=== PATIENT | female | born 1980 | race Caucasian/White ===

== ENCOUNTER 2017-03-15 17:45 | Outpatient (CLI) | payer OTHER ==
[2017-03-15 17:59] VITALS: BP 93/51; PULSE 78; RESP 18
--- NOTE | 2017-03-15 19:35 | RADRPT ---
PROCEDURE: US biophysical profile. CLINICAL INDICATION: Pain. well-being. TECHNIQUE: Multiple sonographic images of the uterus were obtained. The images were revi ewed on a PACS workstation. COMPARISON: No prior studies are available for comparison. FINDINGS: There is a single live intrauterine gestation. heart rate is 152 beats per minute. The position is cephalic. The placenta is anterior, grade II. The CLARE is 8.3 cm (normal: 5 - 25 cm). Breathing Movement: 2 Gross Body Movement: 2 Tone: 2 Qualitative Amniotic Fluid Volume: 2 TOTAL: 8 IMPRESSION: 1. Single viable intrauterine gestation. 2. Biophysical profile = 8/8. 3. CLARE = 8.3 cm. RPTAT: HFN .Keila Blank MD, MD Date Time Electronically viewed and signed by .Keila Blank MD, MD on 03/15/2017 19:35 .N/
--- NOTE | 2017-03-15 19:40 | RADRPT ---
PROCEDURE: US OB. CLINICAL INDICATION: Pain. TECHNIQUE: Multiple sonographic images of the pelvis were obtained. Transabdominal imaging only w as performed. The images were reviewed on a PACS workstation. COMPARISON: None available. FINDINGS: There is a single viable intrauterine gestation. Cardiac activity is present with 150 beats per min [place]. There is a vertex presentation. Measurements were made in order to determine age. The results are as follows: BPD = 8.24 cm HC = 29.93 cm AC = 29.02 cm FL = 6.41 cm Estimated gestational age of approximately 33 weeks and 1 day. The estimated date of delivery is 05/02/2017. The EFW = 2111 g, 38.5%. The placenta is anterior, grade II. There is no evidence for an abruption or placenta previa. There is a normal amount of amniotic fluid with an CLARE = 8.3 cm. IMPRESSION: 1. Single viable intrauterine gestation of approximately 33 weeks and 1 day. 2. The estimated date of delivery is 05/02/2017. RPTAT: HFN .Keila Blank MD, MD Date Time Electronically viewed and signed by .Keila Blank MD, MD on 03/15/2017 19:39 .N/
--- NOTE | 2017-03-16 01:46 | PN ---
Triage Information Date/Time March 16, 2017 Weeks of Gestation 33w 2d : 4 Para: 0 Diabetes: none Hypertention: none Additional information Pt came in complaining of vomiting and abdominal pain. Pt is homeless. She had at least one care visit to [facility].She went to [facility] at 0880 on 03/15 for pain in her throat. She says she was given a dose of IV antibiotics for a "lesion in her throat" and was given a prescription that she says is in her shopping cart that was left at an intersection when she was brought here.The patient's story changes a fair amount each time the story is told. PMHx: none. PSHx: none. NKDA. Social: methamphetamine use. Objective Vital Signs Date Time Temp Pulse Resp B/P Pulse Ox O2 Delivery O2 Flow Rate FiO2 03/15/17 17:59 98.1 78 18 93/51 96 Room Air Heart Rate: 140's Contractions: None Results/Medications Imaging Results US: EFW 2111 grams. BPP 8/8. CLARE 8.3 Assessment/Plan IUP at 33w 2d. Nausea and vomiting. P: D/C home after feeding the patient as pt has had no nausea or vomiting while here. Offered the pt a shower which she declined. LUCÍA VARGAS MD Mar 16, 2017 01:43
== END 2017-03-16 02:30 | disposition home or self-care (01) ==
LOC: OBT 17:45 → L-D 17:45 → OBT 03-16 02:30
PROVIDERS: ATTEND Obstetrics & Gynecology
DX: O21.2 Late vomiting of pregnancy (principal); Z3A.33 33 weeks gestation of pregnancy
CPT/HCPCS: 76815; 76818; Z7500; G0463

== ENCOUNTER 2017-03-22 15:17 | Inpatient (IN) | payer OTHER ==
[2017-03-22] MEDS ORDERED: LACTATED RINGER'S 1,000 ML IV SCH (15:40)
[2017-03-22] MEDS ORDERED: POTASSIUM CHLORIDE 250 ML IVPB ONE (16:00)
[2017-03-22] MEDS ORDERED: THIAMINE 500 MG in SOD CHLORIDE 0.9% 100 ML IV SCH (17:00)
[2017-03-22 17:11] LABS: BASOPHILS % 0.1 % (0.0-2.0); EOSINOPHILS # 0.1 10^3/ul (0.0-0.5); EOSINOPHILS % 0.7 % (0.0-7.0); HEMATOCRIT 27.7 % (37.0-47.0); HEMOGLOBIN 9.8 g/dl (12.0-16.0); LYMPHOCYTES # 2.4 10^3/ul (0.8-2.9); LYMPHOCYTES % 27.5 % (15.0-51.0); MEAN CORPUSCULAR HEMOGLOBIN 33.4 pg (29.0-33.0); MEAN CORPUSCULAR HGB CONC 35.4 g/dl (32.0-37.0); MEAN CORPUSCULAR VOLUME 94.5 fl (82.0-101.0); MEAN PLATELET VOLUME 8.6 fl (7.4-10.4); MONOCYTE # 0.5 10^3/ul (0.3-0.9); MONOCYTES % 5.9 % (0.0-11.0); NEUTROPHIL # 5.7 10^3/ul (1.6-7.5); NEUTROPHILS % 65.5 % (39.0-77.0); PLATELET COUNT 256 10^3/UL (140-415); RED BLOOD COUNT 2.93 10^6/ul (4.20-5.40); RED CELL DISTRIBUTION WIDTH 12.4 % (11.5-14.5); WHITE BLOOD COUNT 8.7 10^3/ul (4.8-10.8)
[2017-03-22 17:26] LABS: INR 0.87; PROTIME 11.8 Sec (12.2-14.2); PT RATIO 0.9
[2017-03-22 17:27] LABS: PARTIAL THROMBOPLASTIN TIME 30.6 Sec (25.0-35.0)
[2017-03-22 17:30] LABS: ALBUMIN 2.9 g/dl (3.3-4.9); ALBUMIN/GLOBULIN RATIO 1.03; BILIRUBIN,INDIRECT 0.3 mg/dl (0-1.1); BILIRUBIN,TOTAL 0.3 mg/dl (0.2-1.3); CALCIUM 8.3 mg/dl (8.4-10.2); CREATININE 0.58 mg/dl (0.44-1.00); POTASSIUM 3.7 mmol/L (3.5-5.1); TOTAL PROTEIN 5.7 g/dl (6.1-8.1)
[2017-03-22 17:36] VITALS: BP 137/69; PULSE 81; RESP 18
--- NOTE | 2017-03-22 20:18 | HP ---
Date/Time of Note Date/Time of Note DATE: 03/22/17 TIME: 20:18 OB - History Hx of Present Free Text/Dictation 36 y.o. with an IUP at 36 weeks by her records and brought in by transfer from [facility] as was found wandering in and out of traffic with an altered mental status. Pt's drug screen was positive for methamphetamines, benzodiazepines and marijuana. Pt has a history of alcohol abuse as well and has a court order to attend AA for an unknown reason, found in her purse while looking for her ID. She was given a dose of Versed by the Fire Dept just in order to be able to transport her to the hospital. The pt had a brain MRI which was normal to r/o a bleed or other trauma. She was transferred here as they do not have an OB service at that hospital. Pt was here a week ago and actually seen by me at which time she stated that she was homeless and had left her belongings in a shopping cart at a particular intersection. At that time she had been transferred from [facility] after being found laying in front of a [employer] store. BPP was 8/8 CLARE 8.3 and EFW 2111 grams. She was not maryana and all else was fine so received no therapy and was d/c'ed. Pt has been sleeping since admit and non-arousable. Pt has a visit card for [facility] in her purse with notations for multiple visits. PMHx: drug and ETOH abuse. PSHx: none. NKDA. Social: homeless. Chief Complaint: Altered mental status. H/O drug and alcohol abuse. contractions. Estimated Due Date: Apr 19, 2017 : 4 Para: 0 Spontaneous : 3 Care: Limited Care Ultrasounds: Normal mid trimester US Abnormal Ultrasound Findings: Size less than dates by 2 weeks on 03/15. Medical Complications: None Past Family/Social History * Past Medical, Surgical, Family and Obstetric Histories reviewed prior visit. Full records are not available. Blood Type: Unknown Rubella: unknown RPR/VDRL: Unknown GBS Status: Unknown HBsAG: Unknown OB Admission Exam Vital Signs Vital Signs Vital Signs Date Time Temp Pulse Resp B/P Pulse Ox O2 Delivery O2 Flow Rate FiO2 03/22/17 17:36 81 18 137/69 Room Air Physical Exam HEENT: WNL Heart: Rhythm Normal Lungs: Clear Abdomen: WNL Extremities: Normal Reflexes: Normal Heart Rate: 120's Accelerations: Accelerations Present Decelerations: No Decelerations Varibility: Moderate Contractions on Admission: 6-10 Minutes Apart Intensity: Mild Last 72 hours Lab Results CBC & BMP 03/22/17 17:00 03/22/17 17:01 Liver Function Test 03/22/17 17:01 Alanine Aminotransferase (ALT/SGPT) 59 Albumin 2.9 L Alkaline Phosphatase 151 H Aspartate Amino Transf (AST/SGOT) 51 H Direct Bilirubin 0.00 Total Protein 5.7 L OB Assessment/Plan Other Assessment: A: IUP at 36 weeks. contractions. Altered mental status. Drug and ETOH abuse. Other plan: Monitoring of baby. IV hydration with Thiamine therapy and multivitamin therapy. Rodriguez to gravity. Perinatology consult in AM. 4-point restraints for now until pt alert and oriented. Regular diet when alert and oriented. LUCÍA VARGAS MD Mar 22, 2017 20:18
[2017-03-22] MEDS ORDERED: THIAMINE 200 MG INJ IV SCH (21:00)
[2017-03-22] MEDS: MULTIVITAMINS 10 ML, FOLIC ACID 1 MG in SOD CHLORIDE 0.9% 1,000 ML IVPB SCH (22:13)
[2017-03-23] MEDS ORDERED: HALOPERIDOL 5 MG INJ IV ONE (01:30)
[2017-03-23] MEDS ORDERED: THIAMINE 500 MG in SOD CHLORIDE 0.9% 100 ML IV SCH (04:00)
[2017-03-23] MEDS: MULTIVITAMINS 10 ML, FOLIC ACID 1 MG in SOD CHLORIDE 0.9% 1,000 ML IVPB SCH (09:00)
[2017-03-23] MEDS ORDERED: THIAMINE 100 MG TAB PO SCH ×3 (11:00→12:15)
[2017-03-23] MEDS ORDERED: QUETIAPINE 100 MG TAB PO SCH (12:00)
[2017-03-23] MEDS: QUETIAPINE 100 MG TAB PO SCH ×2 (13:00→17:15)
--- NOTE | 2017-03-23 14:37 | PSY ---
Date/Time of Note Date/Time of Note DATE: 03/23/17 TIME: 14:33 Psychiatric Subjective Eval Consent Pt consented to telemedicine: Yes Subjective Evaluation Patient location: inpatient Chief Complaint: "I am undercover fbi agent" History of present illness 34 yo female with hx amphetamine use and bipoalr, off meds; combative and confused, required restraints. Pt demands to leave, threatening: 'I will take your license away, I am an fbi agent" grandiose, paranoid, disorgaznied, no table to plan for food, detention, clothing. No Si or HI. Past psychiatric history multiple inpt Hospitalization: yes Family History denies Medical history 32 weeks Allergies: Coded Allergies: No Known Allergy (Unverified , 03/15/17) Unknown: Unable to obtain (Unverified , 03/22/17) Substance Abuse Substance abuse history: Yes Prior substance abuse treatmen: Yes Social History Marital status: single Level of education: hs DPA/Conservatorship: No Occupation/Group Home: homeless Psychiatric Objective Eval Mental Status Examination: Appearance: Poor Hygiene Eye Contact: Good Psychomotor Activity: Agitated Behavior: Cooperative, Hostile Speech: Pressured AFFECT: Libile Mood: Irritable Though Process: Tangential Thought Content: Delusions Suicidal: No Homicidal: No Orientation: x3 Cognition: Alert Insight: Impared Judgement: Impared Laboratory Results Laboratory Tests Test 03/22/17 17:00 03/22/17 17:01 White Blood Count 8.710^3/ul Red Blood Count 2.9310^6/ul Hemoglobin 9.8g/dl Hematocrit 27.7% Mean Corpuscular Volume 94.5fl Mean Corpuscular Hemoglobin 33.4pg Mean Corpuscular Hemoglobin Concent 35.4g/dl Red Cell Distribution Width 12.4% Platelet Count 57048^3/UL Mean Platelet Volume 8.6fl Neutrophils % 65.5% Lymphocytes % 27.5% Monocytes % 5.9% Eosinophils % 0.7% Basophils % 0.1% Nucleated Red Blood Cells % 0.0/100WBC Neutrophils # 5.710^3/ul Lymphocytes # 2.410^3/ul Monocytes # 0.510^3/ul Eosinophils # 0.110^3/ul Basophils # 0.010^3/ul Nucleated Red Blood Cells # 0.010^3/ul Rapid Plasma Reagin NONREACTIVE Prothrombin Time 11.8Sec Prothrombin Time Ratio 0.9 INR International Normalized Ratio 0.87 Activated Partial Thromboplast Time 30.6Sec Sodium Level 139mmol/L Potassium Level 3.7mmol/L Chloride Level 106mmol/L Carbon Dioxide Level 24mmol/L Anion Gap 13 Blood Urea Nitrogen 8mg/dl Creatinine 0.58mg/dl Glucose Level 72mg/dl Calcium Level 8.3mg/dl Total Bilirubin 0.3mg/dl Direct Bilirubin 0.00mg/dl Indirect Bilirubin 0.3mg/dl Aspartate Amino Transf (AST/SGOT) 51IU/L Alanine Aminotransferase (ALT/SGPT) 59IU/L Alkaline Phosphatase 151IU/L Total Protein 5.7g/dl Albumin 2.9g/dl Globulin 2.80g/dl Albumin/Globulin Ratio 1.03 Hepatitis B Surface Antigen NEGATIVE Assessment and Plan Assessment/Diagnosis Elsie I: Amphetmaien use disorder. Psychosis nos Elsie II: defered Elsie III: 32 weeks Elsie IV: severe Elsie V: 25 Recommendation/Plan Medication Management seroquel 100 mg po bid; zyorexa 10 mg IM + Benadryl 50 mg im prn q 12 agitation Follow-up/Disposition 5105 for gd; dto; transfer to in psych 5150 Recommendation: HOLGER Fong MD Mar 23, 2017 14:36
[2017-03-25] MEDS ORDERED: SOD CHLORIDE 0.9% IV SCH ×6 (09:00)
[2017-03-25] MEDS ORDERED: THIAMINE IV SCH ×6 (09:00)
[2017-03-25] MEDS ORDERED: THIAMINE 200 MG INJ IV SCH (09:00)
[2017-03-25] MEDS ORDERED: THIAMINE 200 MG INJ IVPB SCH (09:00)
== END 2017-03-23 18:59 | disposition left against medical advice (07) | DRG 778 ==
LOC: OBT 15:17 → L-D 15:18 → MERGE 15:18 → L-D 15:18
PROVIDERS: ADMIT Obstetrics & Gynecology; ATTEND Obstetrics & Gynecology
DX: O60.03 Preterm labor without delivery, third trimester (principal); F10.99 Alcohol use, unspecified with unspecified alcohol-induced disorder; O99.323 Drug use complicating pregnancy, third trimester; O99.313 Alcohol use complicating pregnancy, third trimester; R41.82 Altered mental status, unspecified; F15.90 Other stimulant use, unspecified, uncomplicated; Z3A.36 36 weeks gestation of pregnancy
CPT/HCPCS: 80053; 85025; 85610; 85730; 86592; 86850; 86900; 86901; 87340; 87591; J1630; J3411; J3480; J7030; J7120

== ENCOUNTER 2017-04-09 15:27 | Emergency (ER) | payer OTHER ==
[~2017-04-09] VITALS: Ht 154.9 cm; Wt 81.8 kg
[~2017-04-09 15:27] MED LIST: FER325 PO; PRENAT PO
[2017-04-09] MEDS ORDERED: ONDANSETRON 4 MG INJ IV STA (15:29)
[2017-04-09] MEDS ORDERED: SOD CHLORIDE 0.9% 1,000 ML IV STA (15:29)
[2017-04-09] MEDS ORDERED: DIPHENHYDRAMINE 50 MG INJ IV ONE (15:30)
[2017-04-09] MEDS ORDERED: morphine 10 MG INJ IV ONE (15:30)
[2017-04-09 15:38] VITALS: Ht 154.9 cm; Wt 81.8 kg
[2017-04-09] MEDS ORDERED: morphine 4 MG/ML VIAL IV STA (15:52)
[2017-04-09 16:04] LABS: BASOPHILS % 0.2 % (0.0-2.0); EOSINOPHILS % 0.1 % (0.0-7.0); HEMATOCRIT 39.4 % (37.0-47.0); HEMOGLOBIN 13.5 g/dl (12.0-16.0); LYMPHOCYTES # 2.7 10^3/ul (0.8-2.9); LYMPHOCYTES % 15.5 % (15.0-51.0); MEAN CORPUSCULAR HEMOGLOBIN 32.8 pg (29.0-33.0); MEAN CORPUSCULAR HGB CONC 34.3 g/dl (32.0-37.0); MEAN CORPUSCULAR VOLUME 95.6 fl (82.0-101.0); MEAN PLATELET VOLUME 9.2 fl (7.4-10.4); MONOCYTE # 0.7 10^3/ul (0.3-0.9); MONOCYTES % 4.2 % (0.0-11.0); NEUTROPHILS % 79.2 % (39.0-77.0); PLATELET COUNT 419 10^3/UL (140-415); RED BLOOD COUNT 4.12 10^6/ul (4.20-5.40); RED CELL DISTRIBUTION WIDTH 13.2 % (11.5-14.5); WHITE BLOOD COUNT 17.3 10^3/ul (4.8-10.8)
--- NOTE | 2017-04-09 16:10 | RADRPT ---
PROCEDURE: US OB. CLINICAL INDICATION: Size and dates , vaginal bleeding TECHNIQUE: Multiple sonographic images of the pelvis and gravid uterus were obtained. The images were reviewed on a PACS workstation. COMPARISON: 04/04/17 FINDINGS: There is a single viable intrauterine gestation. Cardiac activity is present with 127 beats per min jose miguel. There is a vertex presentation. The placenta is anterior. There is no evidence for an abruption or placenta previa. There is a critically low amount of amniotic fluid with an CLARE = 0.5 cm. Measurements were made in order to determine age. The results are as follows: Head to low for accurate measurements. AC =29.6 cm FL =6.5 cm Estimated gestational age of approximately 33 weeks and 4 days based on ultrasound measurements. The estimated date of delivery is 05/24/2017, based on ultrasound measurements. The EFW = 2284 g RPTAT: AA IMPRESSION: Single viable intrauterine gestation of approximately 33 weeks and 4 days based on ultrasound measu rements. Head to low for accurate measurements. Severe oligohydramnios with CLARE measuring 0.5 cm. .Robert Cabrera MD, MD Date Time Electronically viewed and signed by .Robert Cabrera MD, MD on 04/09/2017 16:10 .S/
[2017-04-09 16:24] LABS: ACETAMINOPHEN < 10.0 ug/ml (10.0-30.0); ALANINE AMINOTRANSFERASE 56 IU/L (13-69); ALBUMIN/GLOBULIN RATIO 1.11; ALKALINE PHOSPHATASE 266 IU/L (42-121); ANION GAP 15 (8-16); ASPARTATE AMINO TRANSFERASE 47 IU/L (15-46); BILIRUBIN,INDIRECT 0.4 mg/dl (0-1.1); BILIRUBIN,TOTAL 0.4 mg/dl (0.2-1.3); BLOOD UREA NITROGEN 11 mg/dl (7-20); CALCIUM 9.9 mg/dl (8.4-10.2); CARBON DIOXIDE 22 mmol/L (21-31); CHLORIDE 101 mmol/L (97-110); GLUCOSE 127 mg/dl (70-220); POTASSIUM 4.1 mmol/L (3.5-5.1); SALICYLATE < 1.0 mg/dl (5.0-30.0); SODIUM 134 mmol/L (135-144); TOTAL PROTEIN 7.6 g/dl (6.1-8.1)
[2017-04-09 16:25] LABS: ETHANOL < 10.0 mg/dl; INR 0.88; PROTIME 11.9 Sec (12.2-14.2); PT RATIO 0.9
[2017-04-09 16:26] LABS: PARTIAL THROMBOPLASTIN TIME 26.4 Sec (25.0-35.0)
--- NOTE | 2017-04-09 17:05 | ERA ---
ER Documentation Chief Complaint Date/Time DATE: 04/09/17 TIME: 17:04 Chief Complaint biba for abd pain and vag bleed about 36 wks lmp jun 2016 due 05/08 HPI This is a 36-year-old female who is approximately 34 weeks who presents to the emergency room for evaluation of abdominal pain and vaginal bleeding. This patient was seen in the emergency room multiple times this month for psychiatric issues and was discharged yesterday. She states today that she started having abdominal pain and bleeding. She denies any trauma to the area and came to the ER for evaluation. She localizes her pain to the lower portion of her abdomen. ROS All systems reviewed and are negative except as per history of present illness. Medications Home Meds Reported Medications Multivit/Min/Fol Ac/Iron/Pren* ( S*) 1 Tab Tab, 1 TAB PO DAILY, TAB 04/07/17 Ferrous Sulfate* (Ferrous Sulfate*) 325 Mg Tabec, 325 MG PO DAILY, TAB 04/07/17 Allergies Allergies: Coded Allergies: No Known Allergy (Unverified , 04/07/17) PMhx/Soc History of Surgery: Yes (appendectomy) Anesthesia Reaction: No Hx Neurological Disorder: No Hx Respiratory Disorders: No Hx Cardiac Disorders: No Hx Psychiatric Problems: No (denies) Hx Miscellaneous Medical Probl: No Hx Alcohol Use: No (never) Hx Substance Use: No (denies) Hx Tobacco Use: Yes (2 cigarettes/ day) Smoking Status: Current every day smoker Physical Exam Vitals Vital Signs Date Time Temp Pulse Resp B/P Pulse Ox O2 Delivery O2 Flow Rate FiO2 04/09/17 15:38 98.0 86 26 151/107 100 Physical Exam INITIAL VITAL SIGNS: Reviewed by me GENERAL: The patient has a disheveled appearance and appears to be in moderate distress HEENT: Pupils equal, round, and reactive to light. EOMI. There is no scleral icterus. NECK: C-spine is soft and supple, there is no meningismus. There is no cervical lymphadenopathy. LUNGS: Clear to auscultation bilaterally. There are no rales, wheezes or rhonchi. HEART: Regular rate and rhythm, no murmurs, clicks, rubs or gallops. ABDOMEN: Gravid abdomen, tender to palpation in the right lower quadrant left lower quadrant and suprapubic region, there are bowel sounds in all four quadrants. No rebound or guarding. EXTREMITIES: There is no peripheral cyanosis or edema. No focal swelling or erythema. NEUROLOGICAL: The patient moves all four extremities with 5/5 strength. Cranial nerves II - XII are intact. Normal gait. Alert and oriented SKIN: There is no apparent rash or petechiae. Genitourinary: Bright red blood from the vaginal introitus HEME/LYMPHATIC: There is no evidence of excessive bruising or lymphedema. PSYCHIATRIC: The patient does not appear anxious or depressed. Result Diagram: 04/09/17 1550 04/09/17 1550 Results 24 hrs Laboratory Tests Test 04/09/17 15:50 White Blood Count 17.310^3/ul Red Blood Count 4.1210^6/ul Hemoglobin 13.5g/dl Hematocrit 39.4% Mean Corpuscular Volume 95.6fl Mean Corpuscular Hemoglobin 32.8pg Mean Corpuscular Hemoglobin Concent 34.3g/dl Red Cell Distribution Width 13.2% Platelet Count 68468^3/UL Mean Platelet Volume 9.2fl Neutrophils % 79.2% Lymphocytes % 15.5% Monocytes % 4.2% Eosinophils % 0.1% Basophils % 0.2% Nucleated Red Blood Cells % 0.0/100WBC Neutrophils # (Manual) 1410^3/ul Lymphocytes # 2.710^3/ul Monocytes # 0.710^3/ul Eosinophils # 0.010^3/ul Basophils # 0.010^3/ul Nucleated Red Blood Cells # 0.010^3/ul Prothrombin Time 11.9Sec Prothrombin Time Ratio 0.9 INR International Normalized Ratio 0.88 Activated Partial Thromboplast Time 26.4Sec Sodium Level 134mmol/L Potassium Level 4.1mmol/L Chloride Level 101mmol/L Carbon Dioxide Level 22mmol/L Anion Gap 15 Blood Urea Nitrogen 11mg/dl Creatinine 0.70mg/dl Glucose Level 127mg/dl Calcium Level 9.9mg/dl Total Bilirubin 0.4mg/dl Direct Bilirubin 0.00mg/dl Indirect Bilirubin 0.4mg/dl Aspartate Amino Transf (AST/SGOT) 47IU/L Alanine Aminotransferase (ALT/SGPT) 56IU/L Alkaline Phosphatase 266IU/L Total Protein 7.6g/dl Albumin 4.0g/dl Globulin 3.60g/dl Albumin/Globulin Ratio 1.11 Beta HCG, Quantitative 39274.0mIU/ml Salicylates Level < 1.0mg/dl Acetaminophen Level < 10.0ug/ml Ethyl Alcohol Level < 10.0mg/dl Current Medications Medications (Trade) Dose Ordered Sig/Brady Route PRN Reason Start Time Stop Time Status Last Admin Dose Admin Sodium Chloride (NS) 1,000 ml @ 1,000 mls/hr Q1H STAT IV 04/09/17 15:29 04/09/17 16:28 DC 04/09/17 15:36 Ondansetron HCl (Zofran Inj) 4 mg ONCE STAT IV 04/09/17 15:29 04/09/17 15:32 DC 04/09/17 15:35 Morphine Sulfate (morphine) 6 mg ONCE ONCE IV 04/09/17 15:30 04/09/17 15:32 DC 04/09/17 15:37 Diphenhydramine HCl (Benadryl) 25 mg ONCE ONCE IV 04/09/17 15:30 04/09/17 15:32 DC 04/09/17 15:35 Morphine Sulfate (morphine) 4 mg ONCE STAT IV 04/09/17 15:52 04/09/17 15:53 DC 04/09/17 15:55 Procedures/MDM Obstetrical ultrasound: Single viable intrauterine gestation of approximately 33 weeks and 4 days based on ultrasound measurements. Head to low for accurate measurements. Severe oligohydramnios with CLARE measuring 0.5 cm. This 36-year-old female presents to the emergency room for evaluation of abdominal pain. This patient does have a history of psychiatric issues and was seen in the emergency room earlier this week and was discharged yesterday. This patient was at home and called 911 because she was having abdominal pain and vaginal bleeding. According to EMS when they found her toilet and was complaining of pain and pressure in the lower abdomen. When I evaluated this patient she was in moderate amount of distress and was screaming and did have a bright red blood per her vaginal introitus. The patient was given 10 mg of morphine in the emergency room for pain control. I did obtain an vaginal ultrasound to rule out placental abruption. Transvaginal ultrasound did show oligohydramnios with low riding head. This patient likely is in early labor with premature rupture membranes. The patient was transferred upstairs to labor and delivery at this time for monitoring and possible intervention Critical Care: Time: 33 minutes Treatments/Evaluations: Close monitoring and treatment of unstable vital signs, cardiorespiratory, and neurologic status, while maintaining tight balance of fluid, respiratory, and cardiac interventions, multiple bedside evaluations, reviewing previous medical records, reviewing previous ultrasound reports, coronation of nursing care, consultation with charge nurse, and household manager. Departure Diagnosis: Primary Impression: Abdominal pain Additional Impression: Premature rupture of membranes Condition: Fair CHERELLE MARKS DO Apr 09, 2017 17:05
== END 2017-04-09 16:10 | disposition home or self-care (01) ==
LOC: E/R 15:27
DX: O26.893 Other specified pregnancy related conditions, third trimester (principal); R10.31 Right lower quadrant pain; R10.32 Left lower quadrant pain; O42.913 Preterm premature rupture of membranes, unspecified as to length of time between rupture and onset of labor, third trimester; O99.333 Smoking (tobacco) complicating pregnancy, third trimester; F17.210 Nicotine dependence, cigarettes, uncomplicated; Z3A.33 33 weeks gestation of pregnancy
CPT/HCPCS: 36415; 76805; 80053; 80306; 84702; 85025; 85610; 85730; 86850; 86900; 86901; 96374; 96375; J1200; J2270; J2405; J7030; Z7502

== ENCOUNTER 2017-04-09 16:14 | Inpatient (IN) | payer OTHER ==
[2017-04-09] MEDS ORDERED: AMPICILLIN 2 GM/NS (PMX) 100 ML ONE (16:22)
[2017-04-09] MEDS ORDERED: LACTATED RINGER'S 1,000 ML IV SCH ×2 (16:27→16:32)
[2017-04-09] MEDS ORDERED: AMPICILLIN 2 GM/NS (PMX) 100 ML IV ONE ×2 (16:30→17:00)
[2017-04-09] MEDS ORDERED: IBUPROFEN 600 MG TAB PO PRN ×2 (16:30→17:00)
[2017-04-09] MEDS ORDERED: LIDOCAINE 1% (MPF) 30 ML INJ INJ PRN ×2 (16:30→17:00)
[2017-04-09] MEDS ORDERED: LACTATED RINGER'S 1,000 ML IV PRN ×2 (16:30→17:00)
[2017-04-09] MEDS ORDERED: METHYLERGONOVINE 0.2 MG INJ IM PRN ×2 (16:30→17:00)
[2017-04-09] MEDS ORDERED: OXYTOCIN 30 UNITS/LR 500 ML IV SCH ×4 (16:30→17:00)
[2017-04-09] MEDS ORDERED: MISOPROSTOL 200 MCG TAB PR PRN ×2 (16:30→17:00)
[2017-04-09] MEDS ORDERED: BUTORPHANOL 2 MG INJ IV PRN ×2 (16:30→17:00)
[2017-04-09] MEDS ORDERED: CARBOPROST 250 MCG INJ IM PRN ×2 (16:30→17:00)
[2017-04-09] MEDS ORDERED: OXYTOCIN 30 UNITS/LR 500 ML IV PRN ×2 (16:30→17:00)
[2017-04-09] MEDS ORDERED: HYDROCODONE/APAP (5/325) TAB PO PRN (17:00)
[2017-04-09] MEDS ORDERED: OXYTOCIN 10 UNIT INJ IM PRN (19:30)
[2017-04-09] MEDS ORDERED: AMPICILLIN 2 GM/NS (PMX) 100 ML IVPB ONE (20:30)
[2017-04-09] MEDS ORDERED: AMPICILLIN 1 GM/NS (PMX) 50 ML IV SCH ×2 (20:30→21:00)
--- NOTE | 2017-04-10 01:21 | HP ---
Date/Time of Note Date/Time of Note DATE: 04/10/17 TIME: 00:41 OB - History Hx of Present Free Text/Dictation 36y.o A2(iab, ectopic) was brought by amulance after srom on the street had few visit including 2timester u/s which make her at 35w6d. known to be bipolar from childhood, cocaine ,metamphetamine, attempt suicide dx to be schizophrenic initial VE 6cm ruptured kept her for expectant management. Chief Complaint: srom Estimated Due Date: May 08, 2017 : 3 Para: 0 Spontaneous : 0 Therapeutic : 2 Care: Limited Care Ultrasounds: Normal mid trimester US Obstetrical Complications: None, Growth Restriction Medical Complications: None, Psychiatric Other Concerns: use of metamphetamine cocaine Past Family/Social History * Past Medical, Surgical, Family and Obstetric Histories reviewed from chart. Blood Type: O+ Rubella: immune RPR/VDRL: Negative GBS Status: Unknown HBsAG: Negative OB Admission Exam Physical Exam HEENT: WNL Heart: Rhythm Normal Lungs: Clear, Equal Abdomen: WNL Extremities: Normal Reflexes: Normal Cervical Dilatation: 6cm Effacement: 50% Station: -2 Membranes: Ruptured Amniotic Fluid: Clear Heart Rate: 140's (unable to monitor fhr, patient wasnt not cooperating) Accelerations: Accelerations Present OB Assessment/Plan Reason for admission: active labor, rupture of membranes Plan: Expectant Management ROSIO AGUILAR MD Apr 10, 2017 01:20
--- NOTE | 2017-04-10 01:31 | LDN ---
Date/Time of Note Date/Time of Note DATE: 04/10/17 TIME: 01:23 Delivery Summary 36 y.o at 35w6d ruptured membrane in active labor withhx of using metamphetamine and cocaine with schizophrenia Weeks of Gestation 35w6d Placenta Delivered: Spontaneously Meconium: none Episiotomy: No Indication for episiotomy none Perineal laceration: 0 Anesthesia type: None Estimated blood loss: 50 Sponge & Needle done & correct: Yes All needle counts correct: Yes Any foreign bodies felt in the: No Problems: Delivery Information Sex Infant Sex: female Apgars 1 Minute: 8 5 Minute: 9 Suctioning Nose & mouth suctioned at caroline: Yes Delee suction performed: No Umbilical Cord Umbilical cord with: 3 Vessels Cord presentations: no nuchal cord Cord Blood was obtained: Yes Mother & Baby Disposition Disposition Mom & Baby to Maternity; Good: Yes Mom transferred to: Other Baby to NICU: Yes (left hospital almost imediatly with hospital escort after she stated that she wants to give baby up for adaption) ROSIO AGUILAR MD Apr 10, 2017 01:31
== END 2017-04-10 00:18 | disposition left against medical advice (07) | DRG 775 ==
LOC: OBT 16:14 → L-D 16:15 → OBT 16:50 → L-D 16:50 → EEVIPCON 16:50
PROVIDERS: ADMIT Obstetrics & Gynecology; ATTEND Obstetrics & Gynecology
PROC: 10E0XZZ Delivery of Products of Conception, External Approach (ICD-10-PCS; principal; 2017-04-10)
DX: O99.323 Drug use complicating pregnancy, third trimester (principal); F20.9 Schizophrenia, unspecified; O99.344 Other mental disorders complicating childbirth; O99.324 Drug use complicating childbirth; Z3A.35 35 weeks gestation of pregnancy; Z37.0 Single live birth; F31.9 Bipolar disorder, unspecified; F15.90 Other stimulant use, unspecified, uncomplicated
CPT/HCPCS: 99464; J0290; J0595; J2590; J7120